=== PATIENT | male | born 1940 | race Caucasian/White ===

== ENCOUNTER 2024-01-19 13:22 | Inpatient (IN) | payer MEDICARE, OTHER, SELFPAY ==
[~2024-01-19] VITALS: Ht 172.7 cm; Wt 79.6 kg
[2024-01-19] MEDS ORDERED: ONDANSETRON 4MG TAB PO PRN (14:40)
[2024-01-19] MEDS ORDERED: BISACODYL 10MG SUPP PR PRN (14:40)
[2024-01-19] MEDS ORDERED: GLUCAGON INJ 1MG VIAL SC PRN (15:05)
[2024-01-19] MEDS ORDERED: DEXTROSE 50% 50ML SYRINGE IV PRN (15:05)
[2024-01-19] MEDS ORDERED: GLUCOSE 4 GM CHEW PO PRN (15:05)
[2024-01-19 16:10] VITALS: BP 130/64; TEMP 97.1; O2SAT 96
[2024-01-19 20:01] VITALS: BP 128/58; TEMP 97.1; O2SAT 96
[2024-01-19] MEDS: INSULIN LISPRO (NovoLOG) PER UNIT SC SCH (21:00)
[2024-01-19] MEDS ORDERED: HYDR-3490 PO (21:39)
[2024-01-19] MEDS ORDERED: OXYC-517 PO (21:39)
[2024-01-19] MEDS ORDERED: VITA200016 PO (21:39)
[2024-01-19] MEDS ORDERED: MULT-90 PO (21:39)
[2024-01-19] MEDS ORDERED: MELA5TAB58 PO (21:39)
[2024-01-19] MEDS ORDERED: PANT-23 PO (21:39)
[2024-01-19] MEDS ORDERED: HUMA100I3 SC (21:39)
[2024-01-19] MEDS ORDERED: METO1TAB32 PO (21:39)
[2024-01-19] MEDS ORDERED: LOVE1INJ SC (21:39)
[2024-01-19] MEDS ORDERED: B-12100010 PO (21:39)
[2024-01-19] MEDS ORDERED: LOSA100T46 PO (21:39)
[2024-01-19] MEDS ORDERED: FLOM0.4C39 PO (21:39)
[2024-01-19] MEDS ORDERED: HOME MED LIST COMPLETE! XX SCH (21:50)
[2024-01-19] MEDS ORDERED: PILL CUTTER 1 EACH XX PRN (22:45)
[2024-01-19] MEDS: ATORVASTATIN 10 MG TAB PO SCH (23:01)
[2024-01-19] MEDS: RAMELTEON 8 MG TAB (ROZEREM) PO PRN (23:01)
[2024-01-19] MEDS: oxyCODONE 5MG TAB PO PRN (23:02)
[2024-01-20 05:37] VITALS: BP 110/73; TEMP 97.5; O2SAT 93
[2024-01-20 06:33] LABS: BASO % 0.1 % (0.0-1.0); EOS # 0.2 10^3/uL (0.0-0.5); EOS % 1.4 % (0.0-3.0); HEMATOCRIT 38.6 % (42.0-52.0); HEMOGLOBIN 12.8 g/dl (13.5-17.5); LYMPH # 1.8 10^3/uL (1.5-5.0); MEAN CORPUSCULAR HEMOGLOBIN 29.5 pg (27.0-33.0); MEAN CORPUSCULAR HGB CONC 33.2 g/dl (32.0-36.5); MEAN CORPUSCULAR VOLUME 88.9 fl (80.0-96.0); MONO # 1.1 10^3/uL (0.0-0.8); MONO % 9.6 % (2.0-8.0); NEUTROPHILS # 8.5 10^3/uL (1.5-8.5); PLATELET COUNT, AUTOMATED 299 10^3/uL (150-450); RED BLOOD COUNT 4.34 10^6/uL (4.30-6.10); WHITE BLOOD COUNT 11.7 10^3/uL (4.0-10.0)
[2024-01-20 06:59] LABS: ALBUMIN 2.6 G/DL (3.2-5.2); ALKALINE PHOSPHATASE 78 U/L (46-116); ALT/SGPT 50 U/L (7.0-40); AST/SGOT 22 U/L (<34); BILIRUBIN,TOTAL 0.8 MG/DL (0.3-1.2); BLOOD UREA NITROGEN 24 MG/DL (9-23); CALCIUM LEVEL 8.3 MG/DL (8.3-10.6); CARBON DIOXIDE LEVEL 27 MMOL/L (20-31); CHLORIDE LEVEL 104 MMOL/L (98-107); CREATININE FOR GFR 0.88 MG/DL (0.70-1.30); GLOMERULAR FILTRATION RATE > 60.0 (>35); GLUCOSE, FASTING 152 MG/DL (74-106); POTASSIUM SERUM 4.5 MMOL/L (3.5-5.1); SODIUM LEVEL 137 MMOL/L (136-145); TOTAL PROTEIN 5.2 G/DL (5.7-8.2)
[2024-01-20] MEDS: metFORMIN (GLUCOPHAGE) 1000MG TABLET PO SCH (08:16)
[2024-01-20] MEDS: OMEPRAZOLE 20MG CAP PO SCH (08:16)
[2024-01-20] MEDS: DAPAGLIFLOZIN PROPANEDIOL 10MG TABLET (FARXIGA) PO SCH (08:16)
[2024-01-20] MEDS: MULTIVITAMINS/MINERALS THERAP 1 TAB PO SCH (08:16)
[2024-01-20] MEDS: dexAMETHasone 1 MG TAB PO SCH (08:16)
[2024-01-20] MEDS: LOSARTAN 50MG TABLET PO SCH (08:19)
[2024-01-20] MEDS: METOPROLOL SUCC *XL* 25MG TAB (TopROL *XL*) PO SCH (08:19)
[2024-01-20] MEDS: ENOXAPARIN 40MG/0.4ML SYRINGE (J1650 PER 10MG) SC SCH (08:19)
[2024-01-20 14:00] VITALS: BP 99/58; TEMP 97.9; O2SAT 92
[2024-01-20] MEDS: ACETAMINOPHEN TAB 650MG DOSE (2X325MG) PO PRN (15:51)
[2024-01-20] MEDS: INSULIN LISPRO (NovoLOG) PER UNIT SC SCH (18:14)
[2024-01-20 19:40] VITALS: BP 132/59; TEMP 97.5; O2SAT 97
[2024-01-20] MEDS: LOSARTAN 25 MG TAB PO SCH (20:48)
[2024-01-20] MEDS: TAMSULOSIN 0.4 MG CAP PO SCH (20:48)
[2024-01-21 05:09] VITALS: BP 137/64; TEMP 97.9; O2SAT 99
[2024-01-21 07:00] LABS: HEMOGLOBIN A1c 6.8 % (4.0-6.0)
[2024-01-21] MEDS: CALAMINE LOTION 177 ML BTL TOP SCH (09:00)
[2024-01-21 14:00] VITALS: BP 137/65; TEMP 97.5; O2SAT 92
[2024-01-21] MEDS: BACLOFEN 5MG PER 1/2 TABLET PO SCH (20:43)
[2024-01-21 20:45] VITALS: BP 144/64; TEMP 97.6; O2SAT 96
[2024-01-22 05:53] VITALS: BP 111/77; TEMP 98.1; O2SAT 93
[2024-01-22 07:13] LABS: HEMATOCRIT 38.2 % (42.0-52.0); MEAN CORPUSCULAR HEMOGLOBIN 29.7 pg (27.0-33.0); MEAN CORPUSCULAR VOLUME 87.4 fl (80.0-96.0); PLATELET COUNT, AUTOMATED 330 10^3/uL (150-450); RED BLOOD COUNT 4.37 10^6/uL (4.30-6.10); WHITE BLOOD COUNT 12.5 10^3/uL (4.0-10.0)
[2024-01-22] MEDS: dexAMETHasone 1 MG TAB PO SCH (08:33)
[2024-01-22 13:55] VITALS: BP 100/52; TEMP 97.8; O2SAT 98
[2024-01-22 20:03] VITALS: BP 140/71; TEMP 97.7; O2SAT 96
[2024-01-23 06:00] VITALS: BP 117/69; TEMP 98; O2SAT 100
[2024-01-23] MEDS ORDERED: APIXABAN 5 MG TAB (ELIQUIS) PO SCH (09:00)
[2024-01-23] MEDS ORDERED: ASPIRIN 81MG ENTERIC TABLET PO SCH (09:00)
[2024-01-23] MEDS: ASPIRIN 81MG ENTERIC TABLET PO SCH (11:45)
[2024-01-23] MEDS: APIXABAN 5 MG TAB (ELIQUIS) PO SCH (11:45)
[2024-01-23 14:00] VITALS: BP 127/60; TEMP 97.3; O2SAT 95
[2024-01-23 20:15] VITALS: BP 127/65; TEMP 97.8; O2SAT 94
[2024-01-24 05:22] VITALS: BP 134/70; TEMP 97.6; O2SAT 95
[2024-01-24] MEDS: dexAMETHasone 1 MG TAB PO SCH (07:34)
[2024-01-24] MEDS ORDERED: APIXABAN 5 MG TAB (ELIQUIS) PO SCH (09:00)
[2024-01-24] MEDS ORDERED: ASPIRIN 81MG ENTERIC TABLET PO SCH (09:00)
[2024-01-24 14:00] VITALS: BP 113/59; TEMP 97.7; O2SAT 95
[2024-01-24 20:03] VITALS: BP 112/55; TEMP 97.5; O2SAT 97
[2024-01-25 05:45] VITALS: BP 121/61; TEMP 96.9; O2SAT 96
[2024-01-25 06:24] LABS: HEMOGLOBIN 13.8 g/dl (13.5-17.5); MEAN CORPUSCULAR HEMOGLOBIN 29.9 pg (27.0-33.0); MEAN CORPUSCULAR HGB CONC 33.7 g/dl (32.0-36.5); MEAN CORPUSCULAR VOLUME 88.9 fl (80.0-96.0); PLATELET COUNT, AUTOMATED 325 10^3/uL (150-450); RED BLOOD COUNT 4.61 10^6/uL (4.30-6.10); WHITE BLOOD COUNT 10.7 10^3/uL (4.0-10.0)
[2024-01-25 06:49] LABS: ALBUMIN 3.2 G/DL (3.2-5.2); ALKALINE PHOSPHATASE 90 U/L (46-116); ALT/SGPT 44 U/L (7.0-40); AST/SGOT 23 U/L (<34); BILIRUBIN,TOTAL 0.7 MG/DL (0.3-1.2); BLOOD UREA NITROGEN 27 MG/DL (9-23); CALCIUM LEVEL 8.6 MG/DL (8.3-10.6); CARBON DIOXIDE LEVEL 27 MMOL/L (20-31); CHLORIDE LEVEL 106 MMOL/L (98-107); CREATININE FOR GFR 0.86 MG/DL (0.70-1.30); GLOMERULAR FILTRATION RATE > 60.0 (>35); GLUCOSE, FASTING 131 MG/DL (74-106); POTASSIUM SERUM 4.5 MMOL/L (3.5-5.1); SODIUM LEVEL 138 MMOL/L (136-145); TOTAL PROTEIN 5.8 G/DL (5.7-8.2)
[2024-01-25 14:00] VITALS: BP 144/67; TEMP 97.4; O2SAT 95
[2024-01-25 20:00] VITALS: BP 117/66; TEMP 97.8; O2SAT 96
[2024-01-25] MEDS: traZODone 50 MG TAB PO SCH (20:33)
[2024-01-26 06:00] VITALS: BP 141/60; TEMP 96.8; O2SAT 93
[2024-01-26 14:00] VITALS: BP 110/62; TEMP 96.8; O2SAT 96
[2024-01-26] MEDS: NEOSPORIN TOP OINT 15GM TOP SCH (17:55)
[2024-01-26 20:00] VITALS: BP 151/66; TEMP 97.7; O2SAT 97
[2024-01-27] VITALS (7 sets, daily range): BP systolic 83–122; BP diastolic 53–58; TEMP 97.3–98.7; O2SAT 94–98
[2024-01-27 05:59] LABS: HEMOGLOBIN 13.8 g/dl (13.5-17.5); MEAN CORPUSCULAR HEMOGLOBIN 29.7 pg (27.0-33.0); MEAN CORPUSCULAR HGB CONC 33.7 g/dl (32.0-36.5); MEAN CORPUSCULAR VOLUME 88.4 fl (80.0-96.0); PLATELET COUNT, AUTOMATED 214 10^3/uL (150-450); RED BLOOD COUNT 4.64 10^6/uL (4.30-6.10); WHITE BLOOD COUNT 15.8 10^3/uL (4.0-10.0)
[2024-01-27 06:35] LABS: BLOOD UREA NITROGEN 25 MG/DL (9-23); CARBON DIOXIDE LEVEL 21 MMOL/L (20-31); CHLORIDE LEVEL 106 MMOL/L (98-107); CREATININE FOR GFR 0.82 MG/DL (0.70-1.30); GLOMERULAR FILTRATION RATE > 60.0 (>35); GLUCOSE, FASTING 126 MG/DL (74-106); POTASSIUM SERUM 5.2 MMOL/L (3.5-5.1); SODIUM LEVEL 136 MMOL/L (136-145)
[2024-01-27] MEDS: LACTOBACILLUS ACIDOPHILUS CAP (BACID) PO SCH (09:00)
[2024-01-27] MEDS: NS 1,000 ML IV ONE (09:42)
[2024-01-27 14:08] LABS: BASO % 0.1 % (0.0-1.0); EOS # 0.1 10^3/uL (0.0-0.5); EOS % 0.4 % (0.0-3.0); LYMPH # 0.8 10^3/uL (1.5-5.0); LYMPH % 4.7 % (24.0-44.0); MONO # 1.1 10^3/uL (0.0-0.8); MONO % 6.7 % (2.0-8.0); NEUTROPHILS % 87.7 % (36.0-66.0)
[2024-01-27] MEDS: cefTRIAXone SOD 1 GM in D5W MINI-BAG PLUS 50 ML IV SCH (15:47)
[2024-01-27] MEDS: QUEtiapine FUMARATE 12.5 MG HALF-TAB PO SCH (20:24)
[2024-01-28 06:00] VITALS: BP 126/62; TEMP 97.6; O2SAT 97
[2024-01-28 06:23] LABS: MEAN CORPUSCULAR HEMOGLOBIN 29.9 pg (27.0-33.0); MEAN CORPUSCULAR HGB CONC 34.1 g/dl (32.0-36.5); MEAN CORPUSCULAR VOLUME 87.8 fl (80.0-96.0); PLATELET COUNT, AUTOMATED 213 10^3/uL (150-450); RED BLOOD COUNT 3.94 10^6/uL (4.30-6.10); WHITE BLOOD COUNT 14.2 10^3/uL (4.0-10.0)
[2024-01-28 06:24] LABS: HEMOGLOBIN 11.8 g/dl (13.5-17.5)
[2024-01-28 06:25] LABS: HEMATOCRIT 34.6 % (42.0-52.0)
[2024-01-28 06:46] LABS: BLOOD UREA NITROGEN 21 MG/DL (9-23); CALCIUM LEVEL 7.7 MG/DL (8.3-10.6); CARBON DIOXIDE LEVEL 24 MMOL/L (20-31); CHLORIDE LEVEL 103 MMOL/L (98-107); CREATININE FOR GFR 0.91 MG/DL (0.70-1.30); GLOMERULAR FILTRATION RATE > 60.0 (>35); GLUCOSE, FASTING 120 MG/DL (74-106); SODIUM LEVEL 134 MMOL/L (136-145)
[2024-01-28 06:59] LABS: PROCALCITONIN 0.41 ng/ml
[2024-01-28] MEDS: MIRALAX *UNIT DOSE* 17GM PACKET PO PRN (07:04)
[2024-01-28 08:06] VITALS: BP 82/40
[2024-01-28 08:24] VITALS: BP 90/54
[2024-01-28] MEDS: NS 1,000 ML IV ONE (08:40)
[2024-01-28] MEDS: LIDOCAINE 5% (LIDODERM) PATCH TD SCH (09:00)
[2024-01-28 10:00] VITALS: BP 104/52
[2024-01-28 14:00] VITALS: BP 93/50; TEMP 98.5; O2SAT 95
[2024-01-28 20:00] VITALS: BP 128/58; TEMP 98.1; O2SAT 95
[2024-01-29 06:00] VITALS: BP 123/76; TEMP 97.8; O2SAT 96
[2024-01-29 07:04] LABS: BASO % 0.2 % (0.0-1.0); EOS # 0.2 10^3/uL (0.0-0.5); EOS % 1.5 % (0.0-3.0); HEMATOCRIT 34.1 % (42.0-52.0); HEMOGLOBIN 11.3 g/dl (13.5-17.5); LYMPH # 0.9 10^3/uL (1.5-5.0); LYMPH % 8.6 % (24.0-44.0); MEAN CORPUSCULAR HEMOGLOBIN 29.8 pg (27.0-33.0); MEAN CORPUSCULAR HGB CONC 33.1 g/dl (32.0-36.5); MONO # 0.6 10^3/uL (0.0-0.8); MONO % 6.1 % (2.0-8.0); NEUTROPHILS # 8.6 10^3/uL (1.5-8.5); PLATELET COUNT, AUTOMATED 187 10^3/uL (150-450); RED BLOOD COUNT 3.79 10^6/uL (4.30-6.10); WHITE BLOOD COUNT 10.3 10^3/uL (4.0-10.0)
[2024-01-29 07:31] LABS: ALBUMIN 2.5 G/DL (3.2-5.2); ALKALINE PHOSPHATASE 101 U/L (46-116); ALT/SGPT 33 U/L (7.0-40); AST/SGOT 18 U/L (<34); BILIRUBIN,TOTAL 0.4 MG/DL (0.3-1.2); BLOOD UREA NITROGEN 16 MG/DL (9-23); CALCIUM LEVEL 8.1 MG/DL (8.3-10.6); CARBON DIOXIDE LEVEL 24 MMOL/L (20-31); CHLORIDE LEVEL 107 MMOL/L (98-107); CREATININE FOR GFR 0.75 MG/DL (0.70-1.30); GLOMERULAR FILTRATION RATE > 60.0 (>35); GLUCOSE, FASTING 137 MG/DL (74-106); POTASSIUM SERUM 4.2 MMOL/L (3.5-5.1); SODIUM LEVEL 137 MMOL/L (136-145); TOTAL PROTEIN 5.2 G/DL (5.7-8.2)
[2024-01-29] MEDS: METOPROLOL SUCC *XL* 12.5MG PER 1/2 TAB (TopROL *XL*) PO SCH (08:24)
[2024-01-29 12:03] LABS: BLOOD UREA NITROGEN 16 MG/DL (9-23); CARBON DIOXIDE LEVEL 23 MMOL/L (20-31); CHLORIDE LEVEL 108 MMOL/L (98-107); CREATININE FOR GFR 0.84 MG/DL (0.70-1.30); GLOMERULAR FILTRATION RATE > 60.0 (>35); GLUCOSE, FASTING 143 MG/DL (74-106); POTASSIUM SERUM 4.3 MMOL/L (3.5-5.1); SODIUM LEVEL 138 MMOL/L (136-145)
[2024-01-29] MEDS: BACTRIM 160MG/800MG DS TAB PO SCH (12:53)
[2024-01-29 14:16] VITALS: BP 90/51; TEMP 96.7; O2SAT 75
[2024-01-29 14:24] VITALS: O2SAT 99
[2024-01-29] MEDS: NS 1,000 ML IV ONE (14:39)
[2024-01-29 16:07] VITALS: BP 110/66
[2024-01-29 20:00] VITALS: BP 127/63; TEMP 96.9; O2SAT 96
[2024-01-30 05:54] VITALS: BP 112/56; TEMP 97.2; O2SAT 94
[2024-01-30 06:40] LABS: HEMATOCRIT 32.8 % (42.0-52.0); MEAN CORPUSCULAR HEMOGLOBIN 29.8 pg (27.0-33.0); MEAN CORPUSCULAR HGB CONC 33.5 g/dl (32.0-36.5); MEAN CORPUSCULAR VOLUME 88.9 fl (80.0-96.0); PLATELET COUNT, AUTOMATED 164 10^3/uL (150-450); RED BLOOD COUNT 3.69 10^6/uL (4.30-6.10); WHITE BLOOD COUNT 6.6 10^3/uL (4.0-10.0)
[2024-01-30 07:10] LABS: BLOOD UREA NITROGEN 14 MG/DL (9-23); CALCIUM LEVEL 7.7 MG/DL (8.3-10.6); CARBON DIOXIDE LEVEL 24 MMOL/L (20-31); CHLORIDE LEVEL 107 MMOL/L (98-107); CREATININE FOR GFR 0.85 MG/DL (0.70-1.30); GLOMERULAR FILTRATION RATE > 60.0 (>35); GLUCOSE, FASTING 108 MG/DL (74-106); POTASSIUM SERUM 4.1 MMOL/L (3.5-5.1); SODIUM LEVEL 137 MMOL/L (136-145)
[2024-01-30 14:00] VITALS: BP 134/58; TEMP 97.4; O2SAT 91
[2024-01-30] MEDS: LIDOCAINE 5% OINT 30GM TUBE TOP PRN (18:22)
[2024-01-30 20:19] VITALS: BP 140/64; TEMP 98.2; O2SAT 97
[2024-01-31 05:35] VITALS: BP 136/73; TEMP 98.2; O2SAT 98
[2024-01-31 08:19] LABS: HEMATOCRIT 36.6 % (42.0-52.0); HEMOGLOBIN 12.1 g/dl (13.5-17.5); MEAN CORPUSCULAR HEMOGLOBIN 29.4 pg (27.0-33.0); MEAN CORPUSCULAR HGB CONC 33.1 g/dl (32.0-36.5); MEAN CORPUSCULAR VOLUME 88.8 fl (80.0-96.0); PLATELET COUNT, AUTOMATED 178 10^3/uL (150-450); RED BLOOD COUNT 4.12 10^6/uL (4.30-6.10); WHITE BLOOD COUNT 5.4 10^3/uL (4.0-10.0)
[2024-01-31 08:55] LABS: BLOOD UREA NITROGEN 12 MG/DL (9-23); CALCIUM LEVEL 8.1 MG/DL (8.3-10.6); CARBON DIOXIDE LEVEL 21 MMOL/L (20-31); CHLORIDE LEVEL 104 MMOL/L (98-107); CREATININE FOR GFR 0.96 MG/DL (0.70-1.30); GLOMERULAR FILTRATION RATE > 60.0 (>35); GLUCOSE, FASTING 193 MG/DL (74-106); POTASSIUM SERUM 4.1 MMOL/L (3.5-5.1); SODIUM LEVEL 136 MMOL/L (136-145)
[2024-01-31 14:00] VITALS: BP 146/62; TEMP 98.2; O2SAT 96
[2024-01-31 20:00] VITALS: BP 140/65; TEMP 97.3; O2SAT 96
[2024-02-01 06:06] VITALS: BP 111/86; TEMP 97.2; O2SAT 97
[2024-02-01 07:03] LABS: HEMATOCRIT 35.6 % (42.0-52.0); HEMOGLOBIN 11.8 g/dl (13.5-17.5); MEAN CORPUSCULAR HEMOGLOBIN 29.9 pg (27.0-33.0); MEAN CORPUSCULAR HGB CONC 33.1 g/dl (32.0-36.5); MEAN CORPUSCULAR VOLUME 90.1 fl (80.0-96.0); PLATELET COUNT, AUTOMATED 177 10^3/uL (150-450); RED BLOOD COUNT 3.95 10^6/uL (4.30-6.10); WHITE BLOOD COUNT 5.2 10^3/uL (4.0-10.0)
[2024-02-01 07:29] LABS: BLOOD UREA NITROGEN 16 MG/DL (9-23); CALCIUM LEVEL 8.4 MG/DL (8.3-10.6); CARBON DIOXIDE LEVEL 24 MMOL/L (20-31); CHLORIDE LEVEL 106 MMOL/L (98-107); CREATININE FOR GFR 1.16 MG/DL (0.70-1.30); GLOMERULAR FILTRATION RATE > 60.0 (>35); GLUCOSE, FASTING 119 MG/DL (74-106); POTASSIUM SERUM 4.2 MMOL/L (3.5-5.1); SODIUM LEVEL 138 MMOL/L (136-145)
[2024-02-01 14:00] VITALS: BP 131/68; TEMP 97; O2SAT 97
[2024-02-01 20:00] VITALS: BP 141/68; TEMP 98.1; O2SAT 97
[2024-02-02 06:00] VITALS: BP 144/67; TEMP 97.4; O2SAT 98
[2024-02-02 07:04] LABS: HEMATOCRIT 35.5 % (42.0-52.0); HEMOGLOBIN 11.6 g/dl (13.5-17.5); MEAN CORPUSCULAR HEMOGLOBIN 29.5 pg (27.0-33.0); MEAN CORPUSCULAR HGB CONC 32.7 g/dl (32.0-36.5); MEAN CORPUSCULAR VOLUME 90.3 fl (80.0-96.0); PLATELET COUNT, AUTOMATED 187 10^3/uL (150-450); RED BLOOD COUNT 3.93 10^6/uL (4.30-6.10); WHITE BLOOD COUNT 5.5 10^3/uL (4.0-10.0)
[2024-02-02 07:19] LABS: BLOOD UREA NITROGEN 16 MG/DL (9-23); CALCIUM LEVEL 8.3 MG/DL (8.3-10.6); CARBON DIOXIDE LEVEL 26 MMOL/L (20-31); CHLORIDE LEVEL 109 MMOL/L (98-107); CREATININE FOR GFR 0.99 MG/DL (0.70-1.30); GLOMERULAR FILTRATION RATE > 60.0 (>35); GLUCOSE, FASTING 113 MG/DL (74-106); POTASSIUM SERUM 4.4 MMOL/L (3.5-5.1); SODIUM LEVEL 141 MMOL/L (136-145)
[2024-02-02] MEDS: CALCIUM CARBONATE 500 MG CHEW U/D PO PRN (08:56)
[2024-02-02 14:09] VITALS: BP 130/72; TEMP 96.9; O2SAT 82
[2024-02-02 20:00] VITALS: BP 147/69; TEMP 97.6; O2SAT 99
[2024-02-03 06:00] VITALS: BP 149/71; TEMP 96.9; O2SAT 98
[2024-02-03 06:25] LABS: HEMATOCRIT 39.1 % (42.0-52.0); HEMOGLOBIN 12.7 g/dl (13.5-17.5); MEAN CORPUSCULAR HEMOGLOBIN 29.3 pg (27.0-33.0); MEAN CORPUSCULAR HGB CONC 32.5 g/dl (32.0-36.5); MEAN CORPUSCULAR VOLUME 90.1 fl (80.0-96.0); PLATELET COUNT, AUTOMATED 197 10^3/uL (150-450); RED BLOOD COUNT 4.34 10^6/uL (4.30-6.10)
[2024-02-03 06:54] LABS: BLOOD UREA NITROGEN 15 MG/DL (9-23); CALCIUM LEVEL 8.2 MG/DL (8.3-10.6); CARBON DIOXIDE LEVEL 19 MMOL/L (20-31); CHLORIDE LEVEL 108 MMOL/L (98-107); CREATININE FOR GFR 0.91 MG/DL (0.70-1.30); GLOMERULAR FILTRATION RATE > 60.0 (>35); GLUCOSE, FASTING 155 MG/DL (74-106); POTASSIUM SERUM 5.1 MMOL/L (3.5-5.1); SODIUM LEVEL 139 MMOL/L (136-145)
[2024-02-03 14:00] VITALS: BP 129/58; TEMP 97.5; O2SAT 97
[2024-02-03 20:00] VITALS: BP 120/66; TEMP 98; O2SAT 97
[2024-02-03] MEDS: rOPINIRole 2MG TAB PO SCH (20:08)
[2024-02-04 06:00] VITALS: BP 143/67; TEMP 96.5; O2SAT 97
[2024-02-04 10:36] LABS: HEMATOCRIT 36.5 % (42.0-52.0); MEAN CORPUSCULAR HEMOGLOBIN 29.7 pg (27.0-33.0); MEAN CORPUSCULAR HGB CONC 32.9 g/dl (32.0-36.5); MEAN CORPUSCULAR VOLUME 90.3 fl (80.0-96.0); PLATELET COUNT, AUTOMATED 255 10^3/uL (150-450); RED BLOOD COUNT 4.04 10^6/uL (4.30-6.10)
[2024-02-04 10:51] LABS: BLOOD UREA NITROGEN 24 MG/DL (9-23); CALCIUM LEVEL 8.5 MG/DL (8.3-10.6); CARBON DIOXIDE LEVEL 22 MMOL/L (20-31); CHLORIDE LEVEL 104 MMOL/L (98-107); CREATININE FOR GFR 1.15 MG/DL (0.70-1.30); GLOMERULAR FILTRATION RATE > 60.0 (>35); GLUCOSE, FASTING 142 MG/DL (74-106); POTASSIUM SERUM 4.7 MMOL/L (3.5-5.1); SODIUM LEVEL 135 MMOL/L (136-145)
[2024-02-04 14:00] VITALS: BP 122/62; TEMP 97.4; O2SAT 94
[2024-02-04] MEDS: NS 500 ML IV ONE (14:47)
[2024-02-04 19:46] VITALS: BP 153/65; TEMP 97.6; O2SAT 95
[2024-02-04] MEDS: rOPINIRole 0.25 MG TAB(REQUIP) PO SCH (21:14)
[2024-02-05 05:26] VITALS: BP 148/67; TEMP 97.6; O2SAT 97
[2024-02-05 06:01] LABS: HEMATOCRIT 35.6 % (42.0-52.0); HEMOGLOBIN 11.7 g/dl (13.5-17.5); MEAN CORPUSCULAR HEMOGLOBIN 29.6 pg (27.0-33.0); MEAN CORPUSCULAR HGB CONC 32.9 g/dl (32.0-36.5); MEAN CORPUSCULAR VOLUME 90.1 fl (80.0-96.0); PLATELET COUNT, AUTOMATED 229 10^3/uL (150-450); RED BLOOD COUNT 3.95 10^6/uL (4.30-6.10); WHITE BLOOD COUNT 5.3 10^3/uL (4.0-10.0)
[2024-02-05 06:20] LABS: BLOOD UREA NITROGEN 20 MG/DL (9-23); CALCIUM LEVEL 8.5 MG/DL (8.3-10.6); CARBON DIOXIDE LEVEL 24 MMOL/L (20-31); CHLORIDE LEVEL 106 MMOL/L (98-107); CREATININE FOR GFR 1.17 MG/DL (0.70-1.30); GLOMERULAR FILTRATION RATE > 60.0 (>35); GLUCOSE, FASTING 110 MG/DL (74-106); MAGNESIUM LEVEL 1.5 MG/DL (1.8-2.4); POTASSIUM SERUM 4.5 MMOL/L (3.5-5.1); SODIUM LEVEL 137 MMOL/L (136-145)
[2024-02-05 14:00] VITALS: BP 109/55; TEMP 96.8; O2SAT 98
[2024-02-05] MEDS: MAG SULF 1GM/100ML (MAG RUN) 1 GM in IV 1 EA IV ONE (14:02)
[2024-02-05 20:16] VITALS: BP 105/60; TEMP 96.4; O2SAT 99
[2024-02-05] MEDS: zolPIDEM TARTRATE 5 MG TAB PO ONE (21:21)
[2024-02-05] MEDS: rOPINIRole 0.25 MG TAB(REQUIP) PO SCH (21:21)
[2024-02-06 06:10] VITALS: TEMP 97.3; O2SAT 98
[2024-02-06 08:14] LABS: BLOOD UREA NITROGEN 22 MG/DL (9-23); CARBON DIOXIDE LEVEL 25 MMOL/L (20-31); CHLORIDE LEVEL 106 MMOL/L (98-107); GLOMERULAR FILTRATION RATE > 60.0 (>35); GLUCOSE, FASTING 158 MG/DL (74-106); IRON (FE) 71 UG/DL (65-175); MAGNESIUM LEVEL 1.5 MG/DL (1.8-2.4); PERCENT SATURATION 23.1 % (19.7-50.0); POTASSIUM SERUM 4.8 MMOL/L (3.5-5.1); SODIUM LEVEL 139 MMOL/L (136-145); TOTAL IRON BINDING CAPACITY 308 UG/DL (250-425)
[2024-02-06 14:00] VITALS: BP 141/65; TEMP 97.5; O2SAT 97
[2024-02-06 20:00] VITALS: O2SAT 92
[2024-02-06] MEDS: MAGNESIUM OXIDE 400MG TAB (MAG-OX) PO ONE (20:04)
[2024-02-06] MEDS: zolPIDEM TARTRATE 5 MG TAB PO ONE (20:06)
[2024-02-06 20:33] VITALS: BP 150/66; TEMP 96.4; O2SAT 93
[2024-02-07] MEDS: KETOROLAC TROMETHAMINE 10 MG TAB PO ONE (05:21)
[2024-02-07 05:55] VITALS: BP 116/55; TEMP 97.2; O2SAT 95
[2024-02-07 14:00] VITALS: BP 113/59; TEMP 97.1; O2SAT 96
[2024-02-07 20:11] VITALS: BP 126/57; TEMP 97; O2SAT 98
[2024-02-08 06:10] VITALS: BP 137/76; TEMP 96.6; O2SAT 95
[2024-02-08 14:00] VITALS: BP 112/73; TEMP 98.1; O2SAT 96
[2024-02-08 16:00] VITALS: BP 130/72; TEMP 97.1; O2SAT 97
[2024-02-08] MEDS: ACETAMINOPHEN 500 MG TAB PO PRN (18:29)
[2024-02-08 20:23] VITALS: BP 176/85; TEMP 96.1; O2SAT 96
[2024-02-09 05:58] VITALS: BP 150/72; TEMP 96.3; O2SAT 97
[2024-02-09 08:21] VITALS: BP 165/69
[2024-02-09] MEDS: MAG SULF 1GM/100ML (MAG RUN) 1 GM in IV 1 EA IV ONE (10:20)
[2024-02-09 10:57] VITALS: BP 154/76
[2024-02-09] MEDS ORDERED: FLOM0.4C39 PO (11:07)
[2024-02-09] MEDS ORDERED: METO1TAB32 PO (11:07)
[2024-02-09] MEDS ORDERED: ELIQ5TAB PO (11:07)
[2024-02-09] MEDS ORDERED: FARX1TAB3 PO (11:07)
[2024-02-09] MEDS ORDERED: METF10004 PO (11:07)
[2024-02-09] MEDS ORDERED: ATOR1TAB19 PO (11:07)
[2024-02-09] MEDS ORDERED: ROPI5TAB19 PO (11:07)
[2024-02-09] MEDS ORDERED: ASPI81TAEC PO (11:07)
[2024-02-09] MEDS ORDERED: MAGN400T2 PO (11:07)
[2024-02-09] MEDS: oxyCODONE 5MG TAB PO ONE (11:39)
== END 2024-02-09 12:15 | disposition home health service (06) | DRG 41 ==
LOC: M PM&R 16:00
PROVIDERS: ADMIT Student in an Organized Health Care Education/Training Program; ATTEND Student in an Organized Health Care Education/Training Program
PROC: 0JBR0ZZ Excision of Left Foot Subcutaneous Tissue and Fascia, Open Approach (ICD-10-PCS; principal; 2024-01-23)
DX: I69.251 Hemiplegia and hemiparesis following other nontraumatic intracranial hemorrhage affecting right dominant side (principal); R47.01 Aphasia; N39.0 Urinary tract infection, site not specified; I48.91 Unspecified atrial fibrillation; Z79.01 Long term (current) use of anticoagulants; E11.65 Type 2 diabetes mellitus with hyperglycemia; I10 Essential (primary) hypertension; E78.2 Mixed hyperlipidemia; G47.33 Obstructive sleep apnea (adult) (pediatric); Z91.119 Patient's noncompliance with dietary regimen due to unspecified reason; R31.9 Hematuria, unspecified; K21.9 Gastro-esophageal reflux disease without esophagitis; Z79.899 Other long term (current) drug therapy; Z79.4 Long term (current) use of insulin; Z87.891 Personal history of nicotine dependence; I69.320 Aphasia following cerebral infarction; R26.0 Ataxic gait; I69.322 Dysarthria following cerebral infarction; R47.1 Dysarthria and anarthria; E11.43 Type 2 diabetes mellitus with diabetic autonomic (poly)neuropathy; R91.1 Solitary pulmonary nodule; R16.0 Hepatomegaly, not elsewhere classified; D35.2 Benign neoplasm of pituitary gland; J43.9 Emphysema, unspecified; I69.318 Other symptoms and signs involving cognitive functions following cerebral infarction; R41.89 Other symptoms and signs involving cognitive functions and awareness; R41.841 Cognitive communication deficit; R33.9 Retention of urine, unspecified; G25.81 Restless legs syndrome; Z91.199 Patient's noncompliance with other medical treatment and regimen due to unspecified reason; I25.10 Atherosclerotic heart disease of native coronary artery without angina pectoris; E11.621 Type 2 diabetes mellitus with foot ulcer; L97.529 Non-pressure chronic ulcer of other part of left foot with unspecified severity; B96.1 Klebsiella pneumoniae [K. pneumoniae] as the cause of diseases classified elsewhere; D72.829 Elevated white blood cell count, unspecified; I95.9 Hypotension, unspecified